=== PATIENT | female | born 1965 | race Caucasian/White ===

== ENCOUNTER → 2017-04-16 | Outpatient (CLI) | payer OTHER ==
--- NOTE | 2017-04-16 14:35 | MAMMOGRAPHY REPORT ---
BILATERAL DIGITAL DIAGNOSTIC MAMMOGRAM TOMOSYNTHESIS WITH CAD AND TARGETED RIGHT ULTRASOUND: 04/16/2017 CLINICAL HISTORY: The patient reports intermittent focal right breast pain for approximately one year . She denies any associated lump, nipple discharge, or other complaints. TECHNIQUE: Breast tomosynthesis in addition to standard 2D mammography was performed. Current study was also evaluated with a Computer Aided Detection (CAD) system. Bilateral CC and MLO 2-D and tomosy nthesis images and 2-D left X CCL views were obtained. COMPARISON: Comparison is made to exams dated: 04/20/2014 mammogram, 04/20/2014 ultrasound, 09/13/2013 alma mogram, 09/13/2013 ultrasound, 09/07/2013 mammogram, and 03/19/2011 mammogram - [facility]. BREAST COMPOSITION: There are scattered areas of fibroglandular density in both breasts. FINDINGS: There are no suspicious masses, calcifications, or areas of architectural distortion seen within either breast mammographically. There has been no significant interval change compared to sharon or exams. A square marker mcdonald the site of pain in the right subareolar breast. Scattered bilatera l benign-appearing calcifications are stable. Targeted ultrasound was performed of the area of pain pointed out by the patient, in the right latera l periareolar breast and subareolar breast. Sonographically normal tissue is seen, without evidence of a suspicious mass or other suspicious sonographic abnormality. Incidentally noted in the right 6: 00 periareolar breast is a circumscribed round anechoic 2 x 2 mm mass, consistent with a benign simpl e cyst. IMPRESSION: ACR BI-RADS CATEGORY 2: BENIGN, TARGETED ULTRASOUND ACR BI-RADS CATEGORY 2: BENIGN No suspicious mammographic or sonographic abnormality at the site of focal intermittent right breast pain. There is no mammographic or targeted sonographic evidence of malignancy. Recommend clinical f ollow-up for right breast pain, and recommend routine bilateral screening mammograms in one year. The patient has been verbally notified of the results. Approximately 10% of breast cancers are not detected with mammography. A negative mammographic report should not delay biopsy if a clinically suggestive mass is present. Polly Stern M.D. ah/:04/16/2017 09:59:18 Regional Facilities Specialist: Radha WOO(Eliazar)(M), [facility] letter sent: Normal 03/17 BI-RADS Code: ACR BI-RADS Category 2: Benign Ultrasound BI-RADS: ACR BI-RADS Category 2: Benign
== END | disposition home or self-care (01) ==
LOC: C.MAMM 08:59
PROVIDERS: ATTEND Nurse Practitioner Family
DX: N63.10 Unspecified lump in the right breast, unspecified quadrant (principal); N64.4 Mastodynia

== ENCOUNTER → 2017-10-05 | Outpatient (CLI) | payer OTHER | END | disposition home or self-care (01) | LOC: C.PATHSPEC 16:44 | PROVIDERS: ATTEND Surgery | DX: D23.5 Other benign neoplasm of skin of trunk (principal); L72.9 Follicular cyst of the skin and subcutaneous tissue, unspecified ==

== ENCOUNTER 2018-09-27 12:49 | Observation (INO) ==
--- NOTE | 2018-09-27 14:09 | Pre Anesthesia Assessment ---
Date of Service September 27, 2018 Pre Sedation Assessment Vital Signs Temp Pulse Resp BP Pulse Ox 09/27/18 13:01 36.8 C 63 14 146/87 H 95 Cardiovascular RRR, no murmur, no edema Respiratory normal respiratory effort, lungs clear to auscultation Pre-Sedation Airway Assessment Smoking Status: Current every day smoker Hx Sleep Apnea: No Hx Difficult Intubation: No Short, Thick Neck: No Thyromental Distance: > or= 3.5 Finger Breadths Oral Cavity: + Dentures Mallampati Class: III ASA: ASA3 NPO Status Date of Last Intake of Fluids: 09/27/18 Time of Last Intake of Fluids: 06:00 Last Oral Intake of Fluids Comment: sips with pills Date of Last Intake of Solid Food: 09/26/18 Time of Last Intake of Solid Foods: 17:30 Procedure Planning Contraindications for Sedation: none Current Medications Reviewed: Yes Notes The planned sedation has been discussed with the patient. Informed Consent was obtained. I have identified the patient, determined the appropriateness of sedation and have assessed the patient immediately prior to the procedure. All medicine(s) and interventions are by my order.
[2018-09-27] MEDS ORDERED: NiCARDipine HCL INJ 2.5 MG/ML 10 ML AMP ONE (14:10)
[2018-09-27] MEDS ORDERED: fentaNYL citrate 100 MCG/2 ML VIAL ONE (14:10)
[2018-09-27] MEDS ORDERED: HEPARIN (PORCINE) 1000 UNIT/ML 10 ML (CATH LAB USE ONLY) ONE (14:10)
[2018-09-27] MEDS ORDERED: MIDAZOLAM HCL 1 MG/ML 2ML VIAL ONE ×2 (14:10→14:41)
--- NOTE | 2018-09-27 14:10 | History & Physical Bridge Note ---
Date of Service September 27, 2018 History & Physical Bridge Note I have examined the patient, reviewed the History & Physical and in the interval since the performance of the History & Physical I have noted the following changes of clinical significance: no changes noted
[2018-09-27] MEDS ORDERED: NITROGLYCERIN/D5W 100MCG/ML 20ML SYR ONE (14:11)
[2018-09-27] MEDS ORDERED: CLOPIDOGREL BISULFATE 300 MG TAB ONE (15:08)
--- NOTE | 2018-09-27 15:18 | Post Anesthesia Assessment ---
Date of Service September 27, 2018 Post Sedation Assessment Vital Signs Temp Pulse Resp BP Pulse Ox 09/27/18 13:01 36.8 C 63 14 146/87 H 95 Recovery Score Activity: Moves 4 extremities Respiration: Deep Breath/Cough Circulation: +/-20% PreAnes Value Consciousness: Fully Awake Oxygen Saturation: O2 needed for >90% Discharge Sedation Level of Care: Fast Track Phase II Post Sedation Plan On clinical assessment, the patient appears to have tolerated the sedation without complications. Patient is recovering as anticipated. Patient will continue to be monitored by nursing and may be discharged when sedation discharge criteria are met per below protocol. Upon Completions of procedure and additional 15 minutes continue every 5 minute vital signs and the P.A.R. score; then discharge to a Phase I or Fast Track to Phase II per the following guidelines: * Discharge Patient to appropriate Phase II area if PAR is 8 or greater or return to pre- procedure baseline. The post - procedure orders will be as directed. * If PAR score is less than 8 or not return to pre-procedure baseline then patient will follow Phase I monitoring till PAR is reached for Phase II. The Phase I may be done in procedure room or may call to secure a Phase I area. * If naloxone or flumazenil are used for reversal, hold in Phase I for continued monitoring from when last reversal dose was given for a minimum of 60 minutes or longer pending the nurse and/or physician discretion of patient condition before discharge to Phase II. Please call the Sedation Physician to re-evaluate and complete post-note for discharge to Phase II area. Do NOT discharge from procedure sedation or Phase 1 until post- sedation evaluation note is complete by procedure /sedation MD Sedation Discharge Instructions to be given to the patient at discharge to home.
--- NOTE | 2018-09-27 15:35 | Cardiac Catheterization ---
Cardiac Cath Procedure Full Procedure Date September 27, 2018 Pre-Procedure Diagnosis Pre-Procedure Diagnosis: Positive Stress Test AUC Score AUC Score: 8 Post-Procedure Diagnosis Post-Procedure Diagnosis: Severe CAD, Successful PCI and Normal Intracardiac Pressures Procedure(s) Performed Procedure(s) Performed: Coronary Angiography, Left Heart Cath, Drug Eluting Stent and Radial Artery Angiography Loading Manager Ronan Castle MD High Lift Mule Operator(s) Deisy Estimated Blood Loss Estimated Blood Loss: 15 Medication(s) Medication(s): Clopidogrel, Fentanyl, Heparin, Lidocaine 1%, Nicardipine, Nitroglycerin and Versed Summary of Findings Indication: High risk positive stress test, accelerating angina Access: 6 Fr right radial artery Catheters: Simpson, AR-1 guide Findings: LM -moderate caliber vessel with 20% distal stenosis LAD -moderate caliber vessel, diffuse 40 to 50% mid segment disease. Small distal LAD tapers prior to apex. Small first and second diagonal without significant disease Circumflex -100% occluded at ostium. Small nondominant circumflex fills via right to left collaterals. Small distal PLB's fill via left to left collaterals. RCA -dominant, large caliber vessel, proximal mid luminal irregularities, diffuse 30% latemid into distal RCA, 95+% focal distal stenosis. Right PDA, PLB's without significant disease. Gives off right to left collaterals to occluded circumflex. Acute marginal occluded at ostium. LVEDP -15 -- PCI -- Antithrombotic therapy: Heparin, clopidogrel Procedure: Left main cannulated with AR-1 guide Typewriter Operator Automatic 50 wire passed across lesion into distal vessel Distal RCA lesion predilated with 3.0 compliant balloon Dilated lesion stented with 3.5 x 18 mm Kiran drug-eluting stent Post stent deployment evidence of proximal edge dissection Second drug-eluting stent placed to distal RCA overlapping proximal aspect of initial stent. Stent post-dilated with stent balloon IC vasodilators administered for spasm Post procedure DENA 3 flow, stent well expanded with minimal residual stenosis and no apparent cardiac complications. Arterial Closure: TR band Summary: 1. Severe 2 vessel coronary artery disease -95+% distal RCA stenosis 100% chronic total ostial circumflex occlusion. Fills via right to left collaterals. Moderate, 40 to 50% diffuse mid LAD disease 2. Normal intracardiac filling pressure 3. Successful PCI of distal RCA with 2 overlapping drug-eluting stents (3.0 x 12, 3.5 x 18 [place]). 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 Cardiac Status Clinical evaluation leading to the procedure CAD Presenation: Positive Stress Test Anginal Classification: CCS III Heart Failure: No Cardiogenic Shock within 24 Hours: No Cardiac Arrest within 24 Hours: No Imaging Studies Past 6 Months: Yes Stress Studies Past 6 Months: Yes Stress Echocardiogram: Yes - Positive and Risk/Extent of Ischemia (High) Diagnostic Physicians Name: Ronan Castle MD Status: Elective Closure Device Percutaneous Entry Location: Radial Closure Device: Radial Band Recommendations: PCI without planned CABG PCI Indication: + Stress Test Lesion Segment Name: distal RCA Culprit Artery: Yes Stenosis Prior to Rx (%): 95 Chronic Total Occlusion: No IVUS: No FFR: No Pre-Procedure DENA Flow: 3 Previously Treated Lesion: No Lesion Complexity: Non-High/Non-C Lesion Length (mm): 18 Thrombus Present: Yes Bifurcation Lesion: No Guidewire Across Lesion: Stenosis Post-Procedure (%): 0 Post-Procedure DENA Flow: 3 Devices(s) Deployed: Yes Yes Intraprocedure Events Significant Disection: No Perforation: No
[2018-09-27] MEDS ORDERED: ONDANSETRON INJ 2 MG/ML 2 ML VIAL IV PRN (15:36)
[2018-09-27] MEDS ORDERED: SODIUM CHLORIDE 0.9% 1000ML 1,000 ML IV SCH (15:45)
[2018-09-27] MEDS: METOPROLOL TARTRATE 25 MG TAB PO SCH (20:47)
[2018-09-28 06:22] LABS: Basophils # (auto) 0.05 K/uL (0-0.2); Basophils % (auto) 0.6 %; Eosinophils # (auto) 0.33 K/uL (0-0.5); Eosinophils % (auto) 4.1 %; Hematocrit (blood only) 44.3 % (37-47); Hemoglobin 15.1 g/dL (12.0-16.0); Immature Granulocytes # (auto) 0.01 K/uL (0.00-0.02); Immature Granulocytes % (auto) 0.1 %; Lymphocytes # (auto) 2.84 K/uL (1.2-3.4); Lymphocytes % (auto) 34.9 %; Mean Corpuscular Hgb Conc 34.1 g/dL (32-36); Mean Corpuscular Volume 89.3 fL (80-100); Mean Platelet Volume 9.8 fL (7.4-10.4); Monocytes # (auto) 0.53 K/uL (0.11-0.59); Monocytes % (auto) 6.5 %; Neutrophils # (auto) 4.37 K/uL (1.4-6.5); Neutrophils % (auto) 53.8 %; Platelet Count 247 K/uL (130-400); RDW Coefficient of Variation 13.5 % (11.5-14.5); RDW Standard Deviation 44.2 fL (36.4-46.3); Red Blood Count 4.96 M/uL (4.2-5.4); White Blood Count 8.13 K/uL (4.8-10.8)
[2018-09-28 06:59] LABS: BUN Creatinine Ratio 16.9 (10-20); Calcium 8.9 mg/dl (8.5-10.1); Creatinine Clr Calc Pharmacy 106.8 ml/min; Est GFR (African American) 118.3; Est GFR (Non-African American) 102.1; Potassium 3.5 mmol/L (3.5-5.1)
[2018-09-28] MEDS: METOPROLOL TARTRATE 25 MG TAB PO SCH (07:49)
[2018-09-28] MEDS ORDERED: LISINOPRIL 5 MG TAB PO SCH (09:00)
[2018-09-28] MEDS ORDERED: CLOPIDOGREL BISULFATE 75 MG TAB PO SCH (09:00)
[2018-09-28] MEDS ORDERED: PANTOprazole 40 MG TAB PO SCH (09:00)
[2018-09-28] MEDS ORDERED: ASPIRIN 81 MG ECTAB PO SCH (09:00)
[2018-09-28] MEDS ORDERED: MIRABEGRON ER 25 MG TAB PO SCH (09:00)
[2018-09-28] MEDS ORDERED: ATORVASTATIN 40 MG TAB PO SCH (09:00)
--- NOTE | 2018-09-28 12:30 | Discharge Summary ---
Date of Service September 28, 2018 Admission HPI Per Admitting Provider Ms. Allen is a 53-year-old woman hypertension, dyslipidemia, ongoing tobacco abuse who was seen in the cardiology office with increasing exertional chest pain. Exercise stress echo positive for inferior ischemia. Presented for diagnostic cardiac catheterization. Specialty Data Cardiology Cardiac catheterization/PCI 09/27/2018: 1. Severe 2 vessel coronary artery disease -95+% distal RCA stenosis 100% chronic total ostial circumflex occlusion. Fills via right to left collaterals. Moderate, 40 to 50% diffuse mid LAD disease 2. Normal intracardiac filling pressure 3. Successful PCI of distal RCA with 2 overlapping drug-eluting stents (3.0 x 12, 3.5 x 18 [place]). Discharge Data Procedures Performed Operation Date: 09/27/18 14:00 Actual Procedures p Cath, Left with Cors and Vent - Emmanuel Castle MD s Drug Eluting Stent SGl Vessel - Emmanuel Castle MD s Cineradiography w/Routine Exam - Emmanuel Castle MD Hospital Course (1) Accelerating angina: Patient underwent cardiac catheterization via right radial artery. He was found to have severe multivessel disease including an occluded proximal circumflex and a 95% focal distal RCA stenosis prior to PDA/PLB's which gave off collaterals to the left. Patient underwent successful PCI with 2 overlapping drug-eluting stents to his distal RCA. Procedure uncomplicated. Admitted to telemetry for observation. Had no chest pain overnight. Telemetry remarkable for sinus bradycardia but no other events. Follow-up a.m. labs unremarkable. No apparent access site complications. Patient discharged home on DAPT with aspirin, clopidogrel. No other changes to home medicines. Follow-up with cardiology in 2 weeks. Discharge Instructions Home Medications Myrbetriq 50 mg PO QAM 08/31/18 [History Confirmed 09/27/18] aspirin [Aspir-81] 81 mg PO QPM 08/31/18 [History Confirmed 09/27/18] lisinopril 5 mg PO QAM 08/31/18 [History Confirmed 09/27/18] omeprazole 20 mg PO QAM 08/31/18 [History Confirmed 09/27/18] atorvastatin 40 mg PO DAILY 09/27/18 [History Confirmed 09/27/18] metoprolol tartrate 25 mg PO BID 09/27/18 [History Confirmed 07/15/19] clopidogrel 75 mg PO QAM 30 Days #30 tab 09/28/18 [Rx]
== END 2018-09-28 09:35 | disposition home or self-care (01) ==
LOC: 2S 12:49 → CC 12:49